=== PATIENT | female | born 1960 | race Caucasian/White ===

== ENCOUNTER 2017-07-27 20:28 | Inpatient (IN) | payer BC ==
[~2017-07-27] VITALS: Ht 167.6 cm; Wt 176.1 kg
[~2017-07-27 20:28] MED LIST: ACIDOPHILUS LA1 EAC1 PO; ALPRAZOLAM0.5 MG PO; ASPIRIN81 M1 PO; Apresoline PO; BABY ASPIRIN81 M1 PO; Benadryl PO; CELEBREX200 MG PO; Ceftin PO; DIOVAN160 MG PO; DYAZIDE, MA1 CAPSULE PO; Dyazide, Maxzide 37. PO; FLAGYL500 MG PO; HYDROXYCHLOROQ200 MG PO; LO-OVRAL-281 EACH PO; LOW-OGESTREL1 TABLET PO; MAXZIDE 37.5 M1 EACH PO; MELOXICAM15 MG PO; MELOXICAM7.5 MG PO; MOBIC15 MG PO; MOBIC7.5 MG PO; PERCOCET 5/31 TABLET PO; PIROXICAM20 MG PO; PLAQUENIL200 MG PO; PREVACID SOLUTA30 M1 PO; PREVACID30 MG PO; PROBIOTIC1 EAC2 PO; PROTONIX40 MG PO; Percocet 5/325,Endoc PO; Plaquenil PO; SENNA S TABLET1 EACH PO; Senokot S,Pericolace PO; TRAZODONE HCL50 MG PO; VICODIN,LORT1 TABLET PO; Vicodin,Norco 5/325 PO; XANAX XR0.5 MG PO; XANAX0.5 MG PO; XANAX1 MG PO; predniSONE PO
[2017-07-27 21:26] LABS: HEMATOCRIT 39.5 % (36.0-46.0); MCH 23.7 PG (29.0-34.0); MCHC 29.4 G/DL (30.0-36.0); MCV 80.6 FL (83-99); MEAN PLAT.VOLUME 8.7 uM^3 (9.5-12.4); PLATELET COUNT 273 K/uL (156-360); RBC DIS.WIDTH-CV 16.2 % (11.8-14.6); RBC DIS.WIDTH-SD 47.3 % (39-53)
[2017-07-27 21:28] LABS: TROP-I INTERPRETATION NEGATIVE; TROPONIN-I 0.19 ng/mL (0.0-0.30)
[2017-07-27 21:35] LABS: CHLORIDE 104 mEq/L (99-109); POTASSIUM 4.1 mEq/L (3.7-5.4); SODIUM 139 mEq/L (136-147)
[2017-07-27 21:36] LABS: GLUCOSE 116 mg/dL (70-99)
[2017-07-27 21:38] LABS: ANION GAP 11 MEQ/L (2-14)
[2017-07-27 21:40] LABS: GFR ESTIMATE (CALCULATED) 49 mL/min/
[2017-07-27 21:41] LABS: UREA NITROGEN (BUN) 22 mg/dL (9-23)
[2017-07-27 23:25] LABS: INTER. NORMALIZED RATIO 1.1; PROTHROMBIN TIME 12.8 SEC (10.2-12.9)
[2017-07-27 23:28] LABS: PTT 30.2 SEC (25-37)
[2017-07-27] MEDS ORDERED: MELOXICAM15 MG PO (23:41)
[2017-07-27] MEDS ORDERED: ALPRAZOLAM0.5 MG PO (23:49)
[2017-07-27] MEDS ORDERED: HYDROXYCHLOROQ200 MG PO (23:49)
[2017-07-27] MEDS ORDERED: APRESOLINE25 MG PO (23:50)
[2017-07-27] MEDS ORDERED: OMEPRAZOLE40 M1 PO (23:51)
[2017-07-27] MEDS ORDERED: TRIAMTERENE-HC1 EAC1 PO (23:51)
[2017-07-28 01:59] VITALS: BP 133/75
[2017-07-28] MEDS ORDERED: PROBIOTIC1 EAC1 PO (02:38)
[2017-07-28] MEDS ORDERED: CHEWABLE-VITE1 EACH PO (02:39)
[2017-07-28 05:32] LABS: HEMATOCRIT 35.4 % (36.0-46.0); MCH 23.5 PG (29.0-34.0); MCHC 29.4 G/DL (30.0-36.0); MCV 79.9 FL (83-99); MEAN PLAT.VOLUME 8.8 uM^3 (9.5-12.4); PLATELET COUNT 263 K/uL (156-360); RBC DIS.WIDTH-CV 16.3 % (11.8-14.6); RED BLOOD COUNT 4.43 M/uL (3.80-5.20); WHITE BLOOD COUNT 9.6 K/uL (4.1-10.2)
[2017-07-28 06:03] LABS: ANION GAP 8 MEQ/L (2-14); CHLORIDE 103 MEQ/L (99-109); GFR ESTIMATE (CALCULATED) 54 mL/min/; GLUCOSE 168 mg/dL (70-99); POTASSIUM 4.1 MEQ/L (3.7-5.4); SAMPLE HEMOLYSIS CHECK 0; SAMPLE ICTERIC CHECK 0; SAMPLE LIPEMIA CHECK 0; SODIUM 139 MEQ/L (136-147); UREA NITROGEN (BUN) 24 mg/dL (9-23)
[2017-07-28 08:57] VITALS: BP 122/80
[2017-07-28 12:34] VITALS: BP 127/76
[2017-07-28 16:10] VITALS: BP 120/70
[2017-07-28 19:15] VITALS: BP 131/79
[2017-07-29 00:10] VITALS: BP 134/72
[2017-07-29 01:57] LABS: INTER. NORMALIZED RATIO 1.2; PROTHROMBIN TIME 13.5 SEC (10.2-12.9)
[2017-07-29 01:59] LABS: PTT 57.6 SEC (25-37)
[2017-07-29 05:00] VITALS: BP 123/76
[2017-07-29 07:26] VITALS: BP 141/90
[2017-07-29 12:05] VITALS: BP 143/69
[2017-07-29 17:14] VITALS: BP 169/77
[2017-07-29 20:00] VITALS: BP 179/84
[2017-07-30 00:20] VITALS: BP 134/74
[2017-07-30 03:34] VITALS: BP 130/69
[2017-07-30 05:18] LABS: HEMATOCRIT 35.2 % (36.0-46.0); MCH 23.4 PG (29.0-34.0); MCV 80.7 FL (83-99); MEAN PLAT.VOLUME 8.7 uM^3 (9.5-12.4); PLATELET COUNT 244 K/uL (156-360); RBC DIS.WIDTH-CV 16.6 % (11.8-14.6); RBC DIS.WIDTH-SD 48.5 % (39-53); RED BLOOD COUNT 4.36 M/uL (3.80-5.20); WHITE BLOOD COUNT 8.7 K/uL (4.1-10.2)
[2017-07-30 05:44] LABS: INTER. NORMALIZED RATIO 1.4
[2017-07-30 05:45] LABS: ANION GAP 10 MEQ/L (2-14); CHLORIDE 102 MEQ/L (99-109); GFR ESTIMATE (CALCULATED) 54 mL/min/; GLUCOSE 103 mg/dL (70-99); POTASSIUM 4.2 MEQ/L (3.7-5.4); SAMPLE HEMOLYSIS CHECK 0; SAMPLE ICTERIC CHECK 0; SAMPLE LIPEMIA CHECK 0; SODIUM 139 MEQ/L (136-147); UREA NITROGEN (BUN) 19 mg/dL (9-23)
[2017-07-30 08:00] VITALS: BP 131/79
[2017-07-30] MEDS ORDERED: LOVENOX80 MG/0.8 SC (10:42)
[2017-07-30] MEDS ORDERED: LOVENOX100 MG/1 M SC (10:42)
[2017-07-30] MEDS ORDERED: COUMADIN5 MG PO (11:44)
[2017-07-30 12:28] VITALS: BP 135/76
[2017-08-02 16:32] LABS: DRVVT Mixing Study Interp Not Indicated (()); PROTEIN C FUNCTIONAL ACTIVITY+ 118 % (70-180); PTT-LA 118 sec (<=40); Protein S, Free 115 % normal (50-147); Thrombosis Consult Level Limited (()); dRVVT Screen 44 sec (<=45)
[2017-08-03 08:35] LABS: ANTITHROMBIN III ACTIVITY+ 98 % activi (80-120)
== END 2017-07-30 13:27 | disposition home or self-care (01) | DRG 176 ==
LOC: EME 20:28 → EDOF 07-28 01:01 → ENRESERV 07-28 01:03 → 4EAST 07-28 01:50
PROVIDERS: Emergency Medicine; Family Medicine; Hospitalist
DX: I26.99 Other pulmonary embolism without acute cor pulmonale (principal); Z68.44 Body mass index [BMI] 60.0-69.9, adult; E66.01 Morbid (severe) obesity due to excess calories; M19.90 Unspecified osteoarthritis, unspecified site; I10 Essential (primary) hypertension; K21.9 Gastro-esophageal reflux disease without esophagitis; F41.9 Anxiety disorder, unspecified; K57.30 Diverticulosis of large intestine without perforation or abscess without bleeding; Z96.653 Presence of artificial knee joint, bilateral; M32.9 Systemic lupus erythematosus, unspecified; G47.30 Sleep apnea, unspecified; K64.8 Other hemorrhoids; Z73.6 Limitation of activities due to disability; Z86.19 Personal history of other infectious and parasitic diseases; Z86.718 Personal history of other venous thrombosis and embolism; Z87.442 Personal history of urinary calculi; Z79.01 Long term (current) use of anticoagulants; Z80.0 Family history of malignant neoplasm of digestive organs; Z82.3 Family history of stroke; Z82.49 Family history of ischemic heart disease and other diseases of the circulatory system; Z83.3 Family history of diabetes mellitus
CPT/HCPCS: 71020; 71275; 74174; 80048; 81240 90; 83090 90; 84484; 85027; 85240 90; 85300 90; 85303 90; 85305 90; 85306 90; 85307 90; 85610; 85613 90; 85730; 85730 90; 86146 90; 86147 90; 93005; 93306; 93970; 99281; 99285; J1650